=== PATIENT | male | born 1960 | race Asian ===

== ENCOUNTER 2021-04-19 13:23 | Emergency (ER) | payer MEDICAID ==
[~2021-04-19] VITALS: Ht 172.7 cm; Wt 81.8 kg
[2021-04-19] MEDS ORDERED: HYDROmorphone 2 MG/ML VIAL IM ONE (14:00)
[2021-04-19] MEDS ORDERED: ONDANSETRON HCL 4 MG/2 ML VIAL IM ONE (14:00)
[2021-04-19] MEDS ORDERED: ONDANSETRON HCL 4 MG TABLET PO ONE (17:15)
[2021-04-19 17:57] VITALS: BP 140/86
== END 2021-04-19 17:59 | disposition home or self-care (01) ==
LOC: EMS 13:23
DX: S42.002A Fracture of unspecified part of left clavicle, initial encounter for closed fracture (principal); S20.212A Contusion of left front wall of thorax, initial encounter; V43.52XA Car driver injured in collision with other type car in traffic accident, initial encounter; Y93.89 Activity, other specified; Y92.89 Other specified places as the place of occurrence of the external cause; Y99.8 Other external cause status
CPT/HCPCS: 71101; 72040; 72070; 73000; 73060; 96372; 99285; J1170; J2405; Q0162; 29240